=== PATIENT | male | born 1955 | race Two or more races ===

== ENCOUNTER 2018-08-25 16:42 | Outpatient (CLI) | payer OTHER | END 2018-08-25 23:59 | disposition home or self-care (01) | LOC: RAD 16:42 → EDSTATUS 17:00 → RAD 23:59 | PROVIDERS: ATTEND Physician Assistant Medical | DX: M47.816 Spondylosis without myelopathy or radiculopathy, lumbar region (principal); M48.061 Spinal stenosis, lumbar region without neurogenic claudication | CPT/HCPCS: 72148 ==

== ENCOUNTER 2019-04-06 09:33 | Outpatient (CLI) | payer OTHER ==
[2019-04-06 11:16] LABS: CULTURE INDICATED? NO; MICROSCOPIC NOT IND
[2019-04-06 11:24] LABS: BASOPHILS % (AUTO) 2 % (0-1); EOSINOPHILS # (AUTO) 0.31 x10^3/uL (0-0.4); EOSINOPHILS % (AUTO) 5 % (1-7); LYMPHOCYTES # (AUTO) 1.48 x10^3/uL (1-3.4); LYMPHOCYTES % (AUTO) 25 % (22-44); MD NO; MEAN CORPUSCULAR HEMOGLOBIN 29.5 pg (27.5-34.5); MEAN CORPUSCULAR HGB CONC 33.1 g/dL (33.2-36.2); MEAN CORPUSCULAR VOLUME 89.3 fL (81-97); MEAN PLATELET VOLUME 7.9 fL (7.4-10.4); MONOCYTES # (AUTO) 0.69 x10^3/uL (0.2-0.8); MONOCYTES % (AUTO) 12 % (2-9); NEUTROPHILS # (AUTO) 3.41 x10^3/uL (1.8-6.8); NEUTROPHILS % (AUTO) 57 % (42-75); PLATELET COUNT 277 x10^3/uL (130-400); RED CELL DISTRIBUTION WIDTH 15.6 % (9.4-14.8)
[2019-04-06 11:25] LABS: INTERNATIONAL NORMALIZED RATIO 1.01 (0.93-1.1); PROTHROMBIN TIME 10.7 Seconds (9.6-11.5)
[2019-04-06 11:27] LABS: ALBUMIN 4.1 g/dL (3.4-5.0); ANION GAP 11 mmol/L (5-15); CALCIUM 8.9 mg/dL (8.5-10.1); CHLORIDE 101 mmol/L (98-107)
[2019-04-06 11:30] LABS: ALANINE AMINOTRANSFERASE 34 U/L (12-78); ALKALINE PHOSPHATASE 65 U/L (45-117); BILIRUBIN,TOTAL 0.8 mg/dL (0.2-1.0); CREATININE 0.62 mg/dL (0.7-1.3); TOTAL PROTEIN 7.8 g/dL (6.4-8.2)
[2019-04-06] MEDS ORDERED: OXYC5CAP2 PO (15:13)
[2019-04-06] MEDS ORDERED: CINNAMON EXTRACT PO (15:13)
[2019-04-06] MEDS ORDERED: [UNRECOGNIZED DRUG - OTHER] PO (15:13)
[2019-04-06] MEDS ORDERED: PREG75CA PO (15:13)
[2019-04-06] MEDS ORDERED: IRBE150T25 PO (15:13)
[2019-04-06] MEDS ORDERED: CARV40CP5 PO (15:13)
[2019-04-06] MEDS ORDERED: FLAX1CAP PO (15:13)
[2019-04-06] MEDS ORDERED: OMEP20TA62 PO (15:13)
[2019-04-06] MEDS ORDERED: DOXY25TA18 PO (15:13)
[2019-04-06] MEDS ORDERED: Optifiber PO (15:13)
[2019-04-06] MEDS ORDERED: HYDR25TA6 PO (15:13)
[2019-04-06] MEDS ORDERED: [UNRECOGNIZED DRUG - OTHER] PO (15:13)
[2019-04-06] MEDS ORDERED: CHIA SEED PO (15:13)
[2019-04-06] MEDS ORDERED: OMEG1CAP23 PO (15:13)
[2019-04-06] MEDS ORDERED: ROSU5TAB PO (15:13)
[2019-04-06] MEDS ORDERED: PSYLLIUM HUSKS PO (15:13)
[2019-04-06] MEDS ORDERED: TEMA30CA PO (15:13)
[2019-04-06] MEDS ORDERED: ESCI20TA PO (15:13)
[2019-04-06] MEDS ORDERED: [UNRECOGNIZED DRUG - OTHER] PO (15:13)
== END 2019-04-06 23:59 | disposition home or self-care (01) ==
LOC: STAR 09:33
PROVIDERS: ATTEND Neurological Surgery
DX: Z01.818 Encounter for other preprocedural examination (principal); M51.36 Other intervertebral disc degeneration, lumbar region; M48.061 Spinal stenosis, lumbar region without neurogenic claudication; M43.16 Spondylolisthesis, lumbar region; R79.1 Abnormal coagulation profile; R94.31 Abnormal electrocardiogram [ECG] [EKG]; R82.90 Unspecified abnormal findings in urine
CPT/HCPCS: 36415; 71046; 72110; 80053; 81003; 85025; 85610; 85730; 93005

== ENCOUNTER 2019-04-17 11:21 | Inpatient (IN) | payer OTHER ==
[~2019-04-17] VITALS: Ht 177.8 cm; Wt 91.0 kg
[~2019-04-17 11:21] MED LIST: CARV40CP5 PO; CHIA SEED PO; CINNAMON EXTRACT PO; DOXY25TA18 PO; ESCI20TA PO; FLAX1CAP PO; HYDR25TA6 PO; IRBE150T9 PO; OMEG1CAP23 PO; OMEP20TA62 PO; OXYC5CAP2 PO; Optifiber PO; PREG75CA PO; PSYLLIUM HUSKS PO; ROSU5TAB PO; TEMA30CA PO; [UNRECOGNIZED DRUG - OTHER] PO; [UNRECOGNIZED DRUG - OTHER] PO; [UNRECOGNIZED DRUG - OTHER] PO
[2019-04-17] MEDS ORDERED: ACETAMINOPHEN 500 MG TABLET PO ONE (12:00)
[2019-04-17] MEDS ORDERED: LACTATED RINGERS 1,000 ML IV SCH (12:45)
[2019-04-17] MEDS ORDERED: EPINEPHRINE 1 MG/ML, 1ML ONE (13:46)
[2019-04-17] MEDS ORDERED: BUPIVACAINE/PF 0.5% ONE (13:46)
[2019-04-17] MEDS ORDERED: BACITRACIN 50,000 UNIT ONE (13:47)
[2019-04-17] MEDS ORDERED: FENTANYL PF 250 MCG/5ML ONE ×2 (13:52→16:23)
[2019-04-17] MEDS ORDERED: MIDAZOLAM 1 MG/ML, 2ML ONE (13:52)
[2019-04-17] MEDS ORDERED: PROPOFOL 150 ML ONE (13:58)
[2019-04-17] MEDS ORDERED: LIDOCAINE-MPF 2% ,5ML ONE ×2 (13:59)
[2019-04-17] MEDS ORDERED: ONDANSETRON 2MG/ML, 2ML IV PRN (14:30)
[2019-04-17] MEDS ORDERED: OXYcodone 5 MG/5 ML ORAL.SOL UDC PO PRN (14:30)
[2019-04-17] MEDS ORDERED: LABETALOL 5MG/ML, 20ML IV PRN (14:30)
[2019-04-17] MEDS ORDERED: FENTANYL PF 100 MCG/2ML IV PRN (14:30)
[2019-04-17] MEDS ORDERED: LORazepam 2 MG/ML, 1ML IVPush PRN (14:30)
[2019-04-17] MEDS ORDERED: hydrALAzine 20 MG/ML, 1ML IV PRN (14:30)
[2019-04-17] MEDS ORDERED: ONDANSETRON ODT 8 MG PO PRN (14:30)
[2019-04-17] MEDS ORDERED: PROMETHAZINE 25 MG SUPP PR PRN (14:30)
[2019-04-17] MEDS ORDERED: PROMETHAZINE 25 MG/ML, 1ML IV PRN (14:30)
[2019-04-17] MEDS ORDERED: DEXAMETHASONE 4 MG/ML, 1ML ONE (16:23)
[2019-04-17] MEDS ORDERED: SUCCINYLCHOLINE 20 MG/ML, 10ML ONE (16:23)
[2019-04-17] MEDS ORDERED: CEFAZOLIN 1,000 MG ONE (16:23)
[2019-04-17] MEDS ORDERED: ROCURONIUM 10MG/ML,5ML ONE (16:23)
[2019-04-17] MEDS ORDERED: NEOSTIGMINE 1 MG/ML, 10ML ONE (16:23)
[2019-04-17] MEDS ORDERED: ONDANSETRON 2MG/ML, 2ML ONE (16:23)
[2019-04-17] MEDS ORDERED: PROPOFOL 10 MG/ML, 20ML ONE (16:23)
[2019-04-17] MEDS ORDERED: GLYCOPYRROLATE 0.2MG/1ML, 5ML ONE (16:23)
[2019-04-17] MEDS ORDERED: PHARMACY MAY ADJ FOR RENAL FX MC PRN (18:00)
[2019-04-17] MEDS ORDERED: DIPHENHYDRAMINE 50 MG/ML, 1ML IVPush PRN (18:00)
[2019-04-17] MEDS ORDERED: MAGNESIUM HYDROXIDE 8%, 30ML UDC PO PRN (18:00)
[2019-04-17] MEDS ORDERED: ONDANSETRON 2MG/ML, 2ML IVPush PRN (18:00)
[2019-04-17] MEDS ORDERED: TEMPLATE NON-FORMULARY MED. (Escitalopram Oxalate** 20 MG) PO SCH (18:00)
[2019-04-17] MEDS ORDERED: PROMETHAZINE 25 MG/ML, 1ML IM PRN (18:00)
[2019-04-17] MEDS ORDERED: HYDROcodone/APAP 10/325 MG TABLET PO PRN (18:00)
[2019-04-17] MEDS ORDERED: HYDROmorphone 2 MG/ML, 1ML ONE (18:01)
[2019-04-17] MEDS ORDERED: OXYcodone 5 MG/5 ML ORAL.SOL UDC ONE (18:01)
[2019-04-17] MEDS ORDERED: FENTANYL PF 100 MCG/2ML ONE (18:01)
[2019-04-17] MEDS: HYDROmorphone 2 MG/ML, 1ML IVPush PRN ×3 (18:13→18:25)
[2019-04-17] MEDS ORDERED: METHOCARBAMOL 750 MG TABLET ONE (18:21)
[2019-04-17] MEDS: METHOCARBAMOL 750 MG TABLET PO PRN (18:23)
[2019-04-17] MEDS ORDERED: DIAZEPAM 5 MG/ML, 2ML ONE (18:40)
[2019-04-17] MEDS ORDERED: DIAZEPAM 5 MG/ML, 2ML IVPush PRN (19:00)
[2019-04-17 19:55] VITALS: BP 128/85
[2019-04-17] MEDS: PREGABALIN 75 MG CAPSULE PO SCH (20:45)
[2019-04-17] MEDS: D5%-0.9% NACL+KCL 20MEQ 1,000 ML IV SCH (20:45)
[2019-04-17] MEDS: ATORVASTATIN 20 MG TABLET PO SCH (20:45)
[2019-04-17] MEDS: TEMAZEPAM 30 MG CAPSULE PO SCH (20:46)
[2019-04-17] MEDS: CARVEDILOL 12.5 MG TABLET PO SCH (20:46)
[2019-04-17] MEDS: DOXYLAMINE 25MG TABLET PO SCH (20:46)
[2019-04-17] MEDS: morphine SULFATE 10 MG/ML, 1ML IVPush PRN (20:51)
[2019-04-17] MEDS: SODIUM CHLORIDE FLUSH 10ML SYR IVF SCH (21:00)
[2019-04-17] MEDS: HYDROcodone/APAP 5/325 TABLET PO PRN (22:40)
[2019-04-18] VITALS (17 sets, daily range): BP systolic 80–120; BP diastolic 49–81
[2019-04-18] MEDS: CEFAZOLIN PMX 1GM/50ML 50 ML IVPB SCH ×2 (00:04→09:02)
[2019-04-18 05:56] LABS: BASOPHILS % (AUTO) 0 % (0-1); EOSINOPHILS # (AUTO) 0.01 x10^3/uL (0-0.4); EOSINOPHILS % (AUTO) 0 % (1-7); LYMPHOCYTES # (AUTO) 0.64 x10^3/uL (1-3.4); LYMPHOCYTES % (AUTO) 7 % (22-44); MD NO; MEAN CORPUSCULAR HEMOGLOBIN 29.2 pg (27.5-34.5); MEAN CORPUSCULAR VOLUME 91.2 fL (81-97); MEAN PLATELET VOLUME 8.2 fL (7.4-10.4); MONOCYTES % (AUTO) 9 % (2-9); NEUTROPHILS # (AUTO) 8.05 x10^3/uL (1.8-6.8); NEUTROPHILS % (AUTO) 84 % (42-75); PLATELET COUNT 230 x10^3/uL (130-400); RED BLOOD COUNT 4.71 x10^6/uL (4.38-5.82); RED CELL DISTRIBUTION WIDTH 16.5 % (9.4-14.8)
[2019-04-18 06:02] LABS: ANION GAP 5 mmol/L (5-15); CALCIUM 8.4 mg/dL (8.5-10.1); CHLORIDE 106 mmol/L (98-107)
[2019-04-18 06:04] LABS: CREATININE 0.63 mg/dL (0.7-1.3)
[2019-04-18] MEDS: OMEPRAZOLE 20 MG CAPSULE.DR PO SCH (06:11)
[2019-04-18] MEDS: HYDROcodone/APAP 5/325 TABLET PO PRN ×2 (06:12→16:02)
[2019-04-18] MEDS: ENOXAPARIN 40 MG/0.4 ML SQ SCH (06:13)
[2019-04-18] MEDS: SODIUM CHLORIDE FLUSH 10ML SYR IVF SCH ×2 (09:03→21:00)
[2019-04-18] MEDS: CARVEDILOL 12.5 MG TABLET PO SCH ×2 (09:04→21:00)
[2019-04-18] MEDS: HYDROCHLOROTHIAZIDE 25 MG TABLET PO SCH (09:04)
[2019-04-18] MEDS: PREGABALIN 75 MG CAPSULE PO SCH ×2 (09:04→21:23)
[2019-04-18] MEDS: IRBESARTAN 150 MG TABLET PO SCH (09:04)
[2019-04-18] MEDS: METHOCARBAMOL 750 MG TABLET PO PRN (09:07)
[2019-04-18] MEDS: D5%-0.9% NACL+KCL 20MEQ 1,000 ML IV SCH ×2 (09:22→12:42)
[2019-04-18] MEDS ORDERED: SODIUM CHLORIDE 0.9%, 500ML IVBOLUS ONE ×2 (11:30→12:09)
--- NOTE | 2019-04-18 11:47 | NUR ---
JANET OLIVARES - Fall Risk Medication(s) present and receiving anticoagulants. Signed: 04/18/19 at 1148 by Dewey RIVERS
[2019-04-18 12:11] LABS: TROPONIN I < 0.015 ng/mL (0.000-0.045)
[2019-04-18] MEDS: morphine SULFATE 10 MG/ML, 1ML IVPush PRN ×2 (17:31→21:25)
[2019-04-18] MEDS: DOXYLAMINE 25MG TABLET PO SCH (21:23)
[2019-04-18] MEDS: TEMAZEPAM 30 MG CAPSULE PO SCH (21:23)
[2019-04-18] MEDS: ATORVASTATIN 20 MG TABLET PO SCH (21:23)
[2019-04-18] MEDS: OXYcodone/APAP 5/325MG TABLET PO PRN (21:24)
[2019-04-18] MEDS: SENNA/DOCUSATE TABLET PO PRN (22:40)
[2019-04-19 00:32] VITALS: BP 105/60
[2019-04-19] MEDS: D5%-0.9% NACL+KCL 20MEQ 1,000 ML IV SCH (01:49)
[2019-04-19] MEDS: OXYcodone/APAP 5/325MG TABLET PO PRN ×6 (01:49→21:42)
[2019-04-19 05:28] LABS: BASOPHILS # (AUTO) 0.04 x10^3/uL (0-0.1); BASOPHILS % (AUTO) 1 % (0-1); EOSINOPHILS # (AUTO) 0.08 x10^3/uL (0-0.4); EOSINOPHILS % (AUTO) 1 % (1-7); LYMPHOCYTES # (AUTO) 1.29 x10^3/uL (1-3.4); LYMPHOCYTES % (AUTO) 17 % (22-44); MD NO; MEAN CORPUSCULAR HEMOGLOBIN 29.3 pg (27.5-34.5); MEAN CORPUSCULAR VOLUME 91.5 fL (81-97); MEAN PLATELET VOLUME 8.1 fL (7.4-10.4); MONOCYTES # (AUTO) 0.98 x10^3/uL (0.2-0.8); MONOCYTES % (AUTO) 13 % (2-9); NEUTROPHILS # (AUTO) 5.04 x10^3/uL (1.8-6.8); NEUTROPHILS % (AUTO) 68 % (42-75); PLATELET COUNT 222 x10^3/uL (130-400); RED BLOOD COUNT 4.36 x10^6/uL (4.38-5.82); RED CELL DISTRIBUTION WIDTH 16.6 % (9.4-14.8)
[2019-04-19] MEDS: ENOXAPARIN 40 MG/0.4 ML SQ SCH (05:29)
[2019-04-19] MEDS: OMEPRAZOLE 20 MG CAPSULE.DR PO SCH (05:29)
[2019-04-19 05:30] LABS: ANION GAP 6 mmol/L (5-15); CALCIUM 8.3 mg/dL (8.5-10.1); CHLORIDE 106 mmol/L (98-107)
[2019-04-19 05:32] LABS: CREATININE 0.61 mg/dL (0.7-1.3)
[2019-04-19 07:09] VITALS: BP 102/65
[2019-04-19] MEDS ORDERED: SODIUM CHLORIDE 0.9%, 500ML IV ONE (08:30)
[2019-04-19] MEDS ORDERED: METHOCARBAMOL 750 MG TABLET PO PRN (08:30)
[2019-04-19] MEDS: PREGABALIN 75 MG CAPSULE PO SCH ×2 (09:11→21:42)
[2019-04-19] MEDS: IRBESARTAN 150 MG TABLET PO SCH (09:12)
[2019-04-19] MEDS: CARVEDILOL 12.5 MG TABLET PO SCH ×2 (09:12→21:41)
[2019-04-19] MEDS: HYDROCHLOROTHIAZIDE 25 MG TABLET PO SCH (09:12)
[2019-04-19] MEDS: SODIUM CHLORIDE FLUSH 10ML SYR IVF SCH ×2 (09:13→21:00)
[2019-04-19] MEDS: LACTATED RINGERS 1,000 ML IV SCH (09:14)
[2019-04-19 10:10] VITALS: BP 117/79
[2019-04-19] MEDS ORDERED: MORPHINE SULFATE 4 MG/ML, 1ML ONE ×2 (10:15→16:36)
[2019-04-19] MEDS: morphine SULFATE 10 MG/ML, 1ML IVPush PRN ×3 (10:17→22:25)
[2019-04-19 13:38] VITALS: BP 108/71
[2019-04-19 19:05] VITALS: BP 122/77
[2019-04-19] MEDS ORDERED: BISACODYL 10 MG SUPP PR PRN (19:30)
[2019-04-19] MEDS: TEMAZEPAM 30 MG CAPSULE PO SCH (21:41)
[2019-04-19] MEDS: DOXYLAMINE 25MG TABLET PO SCH (21:42)
[2019-04-19] MEDS: ATORVASTATIN 20 MG TABLET PO SCH (21:42)
[2019-04-20 01:00] VITALS: BP 112/76
[2019-04-20] MEDS: LACTATED RINGERS 1,000 ML IV SCH ×3 (01:40→12:30)
[2019-04-20] MEDS: OXYcodone/APAP 5/325MG TABLET PO PRN ×4 (01:56→22:20)
[2019-04-20 05:32] LABS: BASOPHILS # (AUTO) 0.05 x10^3/uL (0-0.1); BASOPHILS % (AUTO) 1 % (0-1); EOSINOPHILS % (AUTO) 3 % (1-7); LYMPHOCYTES # (AUTO) 1.14 x10^3/uL (1-3.4); LYMPHOCYTES % (AUTO) 17 % (22-44); MD NO; MEAN CORPUSCULAR HEMOGLOBIN 29.4 pg (27.5-34.5); MEAN CORPUSCULAR HGB CONC 32.4 g/dL (33.2-36.2); MEAN CORPUSCULAR VOLUME 90.7 fL (81-97); MEAN PLATELET VOLUME 8.1 fL (7.4-10.4); MONOCYTES # (AUTO) 0.88 x10^3/uL (0.2-0.8); MONOCYTES % (AUTO) 13 % (2-9); NEUTROPHILS # (AUTO) 4.33 x10^3/uL (1.8-6.8); NEUTROPHILS % (AUTO) 66 % (42-75); PLATELET COUNT 194 x10^3/uL (130-400); RED BLOOD COUNT 4.23 x10^6/uL (4.38-5.82); RED CELL DISTRIBUTION WIDTH 16.4 % (9.4-14.8)
[2019-04-20 05:37] LABS: INTERNATIONAL NORMALIZED RATIO 0.98 (0.93-1.1); PROTHROMBIN TIME 10.4 Seconds (9.6-11.5)
[2019-04-20 05:44] LABS: ANION GAP 6 mmol/L (5-15); CALCIUM 8.2 mg/dL (8.5-10.1); CHLORIDE 104 mmol/L (98-107)
[2019-04-20 05:45] LABS: CREATININE 0.61 mg/dL (0.7-1.3)
[2019-04-20] MEDS: OMEPRAZOLE 20 MG CAPSULE.DR PO SCH (06:07)
[2019-04-20] MEDS ORDERED: EPINEPHRINE 1 MG/ML, 1ML ONE (06:15)
[2019-04-20] MEDS ORDERED: BUPIVACAINE/PF 0.5% ONE (06:15)
[2019-04-20] MEDS ORDERED: VANCOMYCIN 1,000 MG ONE (06:15)
[2019-04-20] MEDS ORDERED: BUPIVACAINE 0.25% ONE (06:15)
[2019-04-20] MEDS ORDERED: BACITRACIN 50,000 UNIT ONE (06:15)
[2019-04-20 07:03] VITALS: BP 117/69
[2019-04-20] MEDS: PREGABALIN 75 MG CAPSULE PO SCH ×2 (08:08→21:26)
[2019-04-20] MEDS: IRBESARTAN 150 MG TABLET PO SCH (08:08)
[2019-04-20] MEDS: HYDROCHLOROTHIAZIDE 25 MG TABLET PO SCH (08:08)
[2019-04-20] MEDS: CARVEDILOL 12.5 MG TABLET PO SCH ×2 (08:13→21:25)
[2019-04-20] MEDS: SODIUM CHLORIDE FLUSH 10ML SYR IVF SCH ×3 (08:14→21:28)
[2019-04-20] MEDS ORDERED: FENTANYL PF 250 MCG/5ML ONE (08:50)
[2019-04-20] MEDS ORDERED: MIDAZOLAM 1 MG/ML, 2ML ONE (08:50)
[2019-04-20] MEDS ORDERED: PROPOFOL 50 ML ONE ×2 (09:20→11:34)
[2019-04-20] MEDS ORDERED: REMIFENTANIL 2 MG ONE (09:25)
[2019-04-20] MEDS ORDERED: BUPIVACAINE LIPOSOME/PF 10ML INFIL ONE (09:31)
[2019-04-20] MEDS ORDERED: DEXAMETHASONE 4 MG/ML, 1ML ONE (10:21)
[2019-04-20] MEDS ORDERED: ONDANSETRON 2MG/ML, 2ML ONE (10:21)
[2019-04-20] MEDS ORDERED: CEFAZOLIN 1,000 MG ONE (10:21)
[2019-04-20] MEDS ORDERED: ROCURONIUM 10MG/ML,5ML ONE (10:21)
[2019-04-20] MEDS ORDERED: PHENYLEPHRINE 10 MG/ML ONE (10:21)
[2019-04-20] MEDS ORDERED: hydrALAzine 20 MG/ML, 1ML IV PRN (10:30)
[2019-04-20] MEDS ORDERED: ACETAMINOPHEN 325 MG TABLET PO PRN (10:30)
[2019-04-20] MEDS ORDERED: HALOPERIDOL 5 MG/ML IV PRN (10:30)
[2019-04-20] MEDS ORDERED: OXYcodone 5 MG/5 ML ORAL.SOL UDC PO PRN (10:30)
[2019-04-20] MEDS ORDERED: METHOCARBAMOL 1,000 MG in DEXTROSE 5% 100 ML IV PRN (10:30)
[2019-04-20] MEDS ORDERED: MEPERIDINE/PF 25MG/ML,1ML IVPush PRN (10:30)
[2019-04-20] MEDS ORDERED: BUPIVACAINE/PF 0.5% INFIL ONE (11:01)
[2019-04-20] MEDS ORDERED: EPINEPHRINE 1 MG/ML, 1ML INFIL ONE (11:02)
[2019-04-20] MEDS ORDERED: BACITRACIN 50,000 UNIT IRRIG ONE (11:02)
[2019-04-20] MEDS ORDERED: BUPIVACAINE LIPOSOME/PF 20ML INFIL ONE (12:18)
[2019-04-20] MEDS ORDERED: VANCOMYCIN 1,000 MG IM ONE (12:18)
[2019-04-20] MEDS ORDERED: NEOSPORIN OINT, 15GM ONE (12:23)
[2019-04-20] MEDS ORDERED: OXYcodone 5 MG/5 ML ORAL.SOL UDC ONE (12:45)
[2019-04-20] MEDS ORDERED: FENTANYL PF 100 MCG/2ML ONE ×2 (12:45→13:13)
[2019-04-20] MEDS: FENTANYL PF 100 MCG/2ML IV PRN ×4 (12:47→13:27)
[2019-04-20] MEDS ORDERED: DIPHENHYDRAMINE 50 MG/ML, 1ML IVPush PRN (13:00)
[2019-04-20] MEDS ORDERED: MAGNESIUM HYDROXIDE 8%, 30ML UDC PO PRN (13:00)
[2019-04-20] MEDS ORDERED: SENNA/DOCUSATE TABLET PO PRN (13:00)
[2019-04-20] MEDS ORDERED: PROMETHAZINE 25 MG/ML, 1ML IM PRN (13:00)
[2019-04-20] MEDS ORDERED: HYDROcodone/APAP 10/325 MG TABLET PO PRN (13:00)
[2019-04-20] MEDS ORDERED: PHARMACY MAY ADJ FOR RENAL FX MC PRN (13:00)
[2019-04-20] MEDS ORDERED: HYDROmorphone 1 MG/ML, 1ML INJ ONE (13:30)
[2019-04-20] MEDS: HYDROmorphone 2 MG/ML, 1ML IVPush PRN ×2 (13:54→14:12)
[2019-04-20] MEDS ORDERED: KETOROLAC 30 MG/1 ML ONE (13:57)
[2019-04-20] MEDS ORDERED: KETOROLAC 30 MG/1 ML IVPush ONE (14:00)
[2019-04-20] MEDS: NS + 20MEQ KCL 1,000 ML IV SCH (15:24)
[2019-04-20] MEDS: CEFAZOLIN PMX 1GM/50ML 50 ML IVPB SCH (18:12)
[2019-04-20] MEDS: morphine SULFATE 10 MG/ML, 1ML IVPush PRN ×2 (18:44→21:25)
[2019-04-20 19:13] VITALS: BP 124/82
[2019-04-20] MEDS: ATORVASTATIN 20 MG TABLET PO SCH (21:26)
[2019-04-20] MEDS: TEMAZEPAM 30 MG CAPSULE PO SCH (21:26)
[2019-04-20] MEDS: DOXYLAMINE 25MG TABLET PO SCH (21:30)
[2019-04-21 00:29] VITALS: BP 116/80
[2019-04-21] MEDS: LACTATED RINGERS 1,000 ML IV SCH ×2 (01:00→12:11)
[2019-04-21] MEDS: CEFAZOLIN PMX 1GM/50ML 50 ML IVPB SCH (02:42)
[2019-04-21 04:52] VITALS: BP 136/88
[2019-04-21] MEDS: OXYcodone/APAP 5/325MG TABLET PO PRN ×5 (06:06→22:10)
[2019-04-21] MEDS: OMEPRAZOLE 20 MG CAPSULE.DR PO SCH (06:06)
[2019-04-21] MEDS: ENOXAPARIN 40 MG/0.4 ML SQ SCH (06:07)
[2019-04-21] MEDS: NS + 20MEQ KCL 1,000 ML IV SCH ×2 (06:07→18:01)
[2019-04-21 07:36] VITALS: BP 135/84
[2019-04-21] MEDS: morphine SULFATE 10 MG/ML, 1ML IVPush PRN ×3 (08:24→19:20)
[2019-04-21] MEDS: PREGABALIN 75 MG CAPSULE PO SCH ×2 (08:25→22:09)
[2019-04-21] MEDS: SODIUM CHLORIDE FLUSH 10ML SYR IVF SCH ×3 (08:25→22:09)
[2019-04-21] MEDS: CARVEDILOL 12.5 MG TABLET PO SCH ×2 (08:25→22:10)
[2019-04-21] MEDS: IRBESARTAN 150 MG TABLET PO SCH (08:25)
[2019-04-21] MEDS: HYDROCHLOROTHIAZIDE 25 MG TABLET PO SCH (08:25)
[2019-04-21] MEDS: SENNA/DOCUSATE TABLET PO PRN (10:12)
[2019-04-21] MEDS: KETOROLAC 30 MG/1 ML IV SCH ×2 (12:07→20:17)
[2019-04-21] MEDS: METHOCARBAMOL 750 MG in DEXTROSE 5% 100 ML IV SCH ×2 (12:07→18:02)
[2019-04-21 13:39] VITALS: BP 119/81
[2019-04-21] MEDS: ONDANSETRON 2MG/ML, 2ML IVPush PRN (19:20)
[2019-04-21 21:19] VITALS: BP 124/82
[2019-04-21] MEDS: TEMAZEPAM 30 MG CAPSULE PO SCH (22:09)
[2019-04-21] MEDS: ATORVASTATIN 20 MG TABLET PO SCH (22:10)
[2019-04-21] MEDS: DOXYLAMINE 25MG TABLET PO SCH (22:11)
[2019-04-22] MEDS: METHOCARBAMOL 750 MG in DEXTROSE 5% 100 ML IV SCH ×4 (00:10→18:26)
[2019-04-22 02:25] VITALS: BP 122/96
[2019-04-22] MEDS: OXYcodone/APAP 5/325MG TABLET PO PRN ×2 (03:51→08:46)
[2019-04-22] MEDS: ONDANSETRON 2MG/ML, 2ML IVPush PRN (03:51)
[2019-04-22] MEDS: KETOROLAC 30 MG/1 ML IV SCH (03:51)
[2019-04-22] MEDS: morphine SULFATE 10 MG/ML, 1ML IVPush PRN ×3 (04:53→19:37)
[2019-04-22] MEDS: ENOXAPARIN 40 MG/0.4 ML SQ SCH (06:46)
[2019-04-22] MEDS: OMEPRAZOLE 20 MG CAPSULE.DR PO SCH (06:46)
[2019-04-22] MEDS: NS + 20MEQ KCL 1,000 ML IV SCH ×3 (07:10→20:43)
[2019-04-22 07:50] VITALS: BP 114/76
[2019-04-22] MEDS: HYDROCHLOROTHIAZIDE 25 MG TABLET PO SCH (08:39)
[2019-04-22] MEDS: IRBESARTAN 150 MG TABLET PO SCH (08:39)
[2019-04-22] MEDS: PREGABALIN 75 MG CAPSULE PO SCH ×2 (08:46→20:51)
[2019-04-22] MEDS: BISACODYL 10 MG SUPP PR PRN (08:46)
[2019-04-22] MEDS: CARVEDILOL 12.5 MG TABLET PO SCH ×2 (08:46→20:50)
[2019-04-22] MEDS: SODIUM CHLORIDE FLUSH 10ML SYR IVF SCH ×2 (08:47→20:50)
[2019-04-22] MEDS ORDERED: KETOROLAC 30 MG/1 ML IV PRN (11:00)
[2019-04-22] MEDS: MAGNESIUM CITRATE 300ML ORAL SOL PO SCH ×2 (11:48→20:07)
[2019-04-22 13:25] VITALS: BP 108/73
[2019-04-22] MEDS: OXYcodone IR 5MG TABLET PO PRN ×3 (13:48→22:33)
[2019-04-22 19:44] VITALS: BP 121/82
[2019-04-22] MEDS: ATORVASTATIN 20 MG TABLET PO SCH (20:51)
[2019-04-22] MEDS: DOXYLAMINE 25MG TABLET PO SCH (20:51)
[2019-04-22] MEDS: TEMAZEPAM 30 MG CAPSULE PO SCH (20:52)
[2019-04-23] MEDS: METHOCARBAMOL 750 MG in DEXTROSE 5% 100 ML IV SCH ×4 (00:20→17:43)
[2019-04-23] MEDS: morphine SULFATE 10 MG/ML, 1ML IVPush PRN ×2 (01:52→23:26)
[2019-04-23 01:56] VITALS: BP 106/78
[2019-04-23] MEDS: OXYcodone IR 5MG TABLET PO PRN ×4 (03:21→19:57)
[2019-04-23] MEDS: NS + 20MEQ KCL 1,000 ML IV SCH ×4 (03:23→23:05)
[2019-04-23] MEDS: ENOXAPARIN 40 MG/0.4 ML SQ SCH (05:56)
[2019-04-23] MEDS: OMEPRAZOLE 20 MG CAPSULE.DR PO SCH (05:56)
[2019-04-23 06:59] VITALS: BP 113/76
[2019-04-23] MEDS: PREGABALIN 75 MG CAPSULE PO SCH ×2 (07:56→20:40)
[2019-04-23] MEDS: CARVEDILOL 12.5 MG TABLET PO SCH ×2 (07:56→20:41)
[2019-04-23] MEDS: IRBESARTAN 150 MG TABLET PO SCH (07:57)
[2019-04-23] MEDS: HYDROCHLOROTHIAZIDE 25 MG TABLET PO SCH (07:57)
[2019-04-23] MEDS: MAGNESIUM CITRATE 300ML ORAL SOL PO SCH ×2 (07:57→20:36)
[2019-04-23] MEDS: SODIUM CHLORIDE FLUSH 10ML SYR IVF SCH ×2 (07:57→20:40)
[2019-04-23] MEDS: FAMOTIDINE 20 MG TABLET PO SCH ×2 (08:47→20:40)
[2019-04-23] MEDS: DEXAMETHASONE 4 MG/ML, 1ML IVPush SCH ×3 (08:47→20:29)
[2019-04-23] MEDS: ONDANSETRON 2MG/ML, 2ML IVPush PRN (08:51)
[2019-04-23 12:26] VITALS: BP 107/72
[2019-04-23 20:11] VITALS: BP 130/79
[2019-04-23] MEDS: ATORVASTATIN 20 MG TABLET PO SCH (20:40)
[2019-04-23] MEDS: DOXYLAMINE 25MG TABLET PO SCH (20:40)
[2019-04-23] MEDS: TEMAZEPAM 30 MG CAPSULE PO SCH (20:41)
[2019-04-24] MEDS: METHOCARBAMOL 750 MG in DEXTROSE 5% 100 ML IV SCH ×2 (00:55→06:27)
[2019-04-24 02:15] VITALS: BP 116/80
[2019-04-24] MEDS: DEXAMETHASONE 4 MG/ML, 1ML IVPush SCH (02:37)
[2019-04-24] MEDS: NS + 20MEQ KCL 1,000 ML IV SCH ×3 (06:20→19:40)
[2019-04-24] MEDS: OXYcodone IR 5MG TABLET PO PRN ×3 (06:26→20:37)
[2019-04-24] MEDS: OMEPRAZOLE 20 MG CAPSULE.DR PO SCH (06:27)
[2019-04-24] MEDS: ENOXAPARIN 40 MG/0.4 ML SQ SCH (06:29)
[2019-04-24 07:34] VITALS: BP 121/84
[2019-04-24] MEDS ORDERED: morphine SULFATE 10 MG/ML, 1ML IVPush PRN (08:30)
[2019-04-24] MEDS: FAMOTIDINE 20 MG TABLET PO SCH ×2 (09:06→20:36)
[2019-04-24] MEDS: PREGABALIN 75 MG CAPSULE PO SCH ×4 (09:06→20:36)
[2019-04-24] MEDS: CARVEDILOL 12.5 MG TABLET PO SCH ×2 (09:07→20:36)
[2019-04-24] MEDS: HYDROCHLOROTHIAZIDE 25 MG TABLET PO SCH (09:07)
[2019-04-24] MEDS: IRBESARTAN 150 MG TABLET PO SCH (09:07)
[2019-04-24] MEDS: MAGNESIUM CITRATE 300ML ORAL SOL PO SCH ×2 (09:08→20:37)
[2019-04-24] MEDS: KETOROLAC 30 MG/1 ML IM PRN ×2 (09:12→16:41)
[2019-04-24] MEDS: SODIUM CHLORIDE FLUSH 10ML SYR IVF SCH ×2 (09:14→20:40)
[2019-04-24] MEDS: METHOCARBAMOL 750 MG TABLET PO SCH ×3 (11:12→20:36)
[2019-04-24 13:19] VITALS: BP 105/71
[2019-04-24 19:22] VITALS: BP 115/78
[2019-04-24] MEDS: ATORVASTATIN 20 MG TABLET PO SCH (20:35)
[2019-04-24] MEDS: BISACODYL 10 MG SUPP PR PRN ×2 (20:35→23:00)
[2019-04-24] MEDS: DOXYLAMINE 25MG TABLET PO SCH (20:36)
[2019-04-24] MEDS: TEMAZEPAM 30 MG CAPSULE PO SCH (20:36)
[2019-04-25] MEDS: KETOROLAC 30 MG/1 ML IM PRN (01:43)
[2019-04-25] MEDS: OXYcodone IR 5MG TABLET PO PRN ×4 (01:44→20:00)
[2019-04-25 02:08] VITALS: BP 112/74
[2019-04-25] MEDS: NS + 20MEQ KCL 1,000 ML IV SCH ×3 (02:20→15:45)
[2019-04-25] MEDS: METHOCARBAMOL 750 MG TABLET PO SCH ×4 (06:05→19:59)
[2019-04-25] MEDS: OMEPRAZOLE 20 MG CAPSULE.DR PO SCH (06:05)
[2019-04-25] MEDS: ENOXAPARIN 40 MG/0.4 ML SQ SCH (06:05)
[2019-04-25] MEDS: MAGNESIUM CITRATE 300ML ORAL SOL PO SCH ×2 (07:26→21:00)
[2019-04-25 07:28] VITALS: BP 108/76
[2019-04-25] MEDS ORDERED: KETOROLAC 30 MG/1 ML IV PRN (08:30)
[2019-04-25] MEDS: SODIUM CHLORIDE FLUSH 10ML SYR IVF SCH ×2 (09:05→21:00)
[2019-04-25] MEDS: PREGABALIN 75 MG CAPSULE PO SCH ×3 (09:06→21:07)
[2019-04-25] MEDS: FAMOTIDINE 20 MG TABLET PO SCH ×2 (09:06→19:59)
[2019-04-25] MEDS: HYDROCHLOROTHIAZIDE 25 MG TABLET PO SCH (09:06)
[2019-04-25] MEDS: IRBESARTAN 150 MG TABLET PO SCH (09:06)
[2019-04-25] MEDS: CARVEDILOL 12.5 MG TABLET PO SCH ×2 (09:06→20:00)
[2019-04-25 12:51] VITALS: BP 99/65
[2019-04-25] MEDS: SIMETHICONE 80 MG CHEW TAB PO PRN ×2 (16:59→21:07)
[2019-04-25] MEDS: LACTATED RINGERS 1,000 ML IV SCH ×2 (16:59→17:00)
[2019-04-25 19:30] VITALS: BP 107/73
[2019-04-25] MEDS: TEMAZEPAM 30 MG CAPSULE PO SCH (19:59)
[2019-04-25] MEDS: DOXYLAMINE 25MG TABLET PO SCH (19:59)
[2019-04-25] MEDS: ATORVASTATIN 20 MG TABLET PO SCH (20:00)
[2019-04-25] MEDS ORDERED: KETOROLAC 30 MG/1 ML IM PRN (20:30)
[2019-04-26 02:35] VITALS: BP 119/80
[2019-04-26] MEDS: OXYcodone IR 5MG TABLET PO PRN ×2 (02:42→10:18)
[2019-04-26] MEDS: SIMETHICONE 80 MG CHEW TAB PO PRN ×2 (02:42→08:57)
[2019-04-26] MEDS: METHOCARBAMOL 750 MG TABLET PO SCH ×2 (04:40→11:21)
[2019-04-26] MEDS: OMEPRAZOLE 20 MG CAPSULE.DR PO SCH (04:40)
[2019-04-26] MEDS: ENOXAPARIN 40 MG/0.4 ML SQ SCH (04:41)
[2019-04-26 07:42] VITALS: BP 116/72
[2019-04-26] MEDS: SODIUM CHLORIDE FLUSH 10ML SYR IVF SCH (08:08)
[2019-04-26] MEDS: MAGNESIUM CITRATE 300ML ORAL SOL PO SCH (08:08)
[2019-04-26] MEDS: PREGABALIN 75 MG CAPSULE PO SCH (08:54)
[2019-04-26] MEDS: HYDROCHLOROTHIAZIDE 25 MG TABLET PO SCH (08:54)
[2019-04-26] MEDS: CARVEDILOL 12.5 MG TABLET PO SCH (08:54)
[2019-04-26] MEDS: FAMOTIDINE 20 MG TABLET PO SCH (08:57)
[2019-04-26] MEDS: IRBESARTAN 150 MG TABLET PO SCH (08:57)
[2019-04-26] MEDS ORDERED: OXYC5TAB2 PO (09:02)
[2019-04-26] MEDS ORDERED: MORP-52 PO (09:02)
[2019-04-26 11:00] VITALS: BP 107/72
== END 2019-04-26 12:02 | DRG 454 ==
LOC: ORIP 11:21 → 4NE 19:54
PROVIDERS: ADMIT Neurological Surgery; ATTEND Neurological Surgery
PROC: 0SG1071 Fusion of 2 or more Lumbar Vertebral Joints with Autologous Tissue Substitute, Posterior Approach, Posterior Column, Open Approach (ICD-10-PCS; 2019-04-20)
PROC: 01NB0ZZ Release Lumbar Nerve, Open Approach (ICD-10-PCS; 2019-04-20)
PROC: 00NY0ZZ Release Lumbar Spinal Cord, Open Approach (ICD-10-PCS; 2019-04-20)
PROC: 4A11X4G Monitoring of Peripheral Nervous Electrical Activity, Intraoperative, External Approach (ICD-10-PCS; 2019-04-20)
PROC: 0SG10A0 Fusion of 2 or more Lumbar Vertebral Joints with Interbody Fusion Device, Anterior Approach, Anterior Column, Open Approach (ICD-10-PCS; principal; 2019-04-20 09:30)
DX: M48.061 Spinal stenosis, lumbar region without neurogenic claudication (principal); M48.56XA Collapsed vertebra, not elsewhere classified, lumbar region, initial encounter for fracture; I10 Essential (primary) hypertension; M43.16 Spondylolisthesis, lumbar region; M51.16 Intervertebral disc disorders with radiculopathy, lumbar region; M53.2X6 Spinal instabilities, lumbar region; Z82.61 Family history of arthritis; Z83.3 Family history of diabetes mellitus; Z88.8 Allergy status to other drugs, medicaments and biological substances
CPT/HCPCS: 36415; 72100; 74021; 76000; J3490; S0020; 72131; 80048; 82962; 84484; 85025; 85610; 86850; 86900; 93005; C1713; C9290; G0378; J0171; J0690; J1100; J1170; J1650; J1885; J2250; J2405; J2704; J2710; J3010; J3360; J3370; J3480; C1760; C1762; C1763; C1769; J0330; J1200; J2270; J2370; J2800; J7040; J7120

== ENCOUNTER 2019-08-15 07:17 | Outpatient (CLI) | payer MEDICAID ==
[~2019-08-15 07:17] MED LIST changes: +MORP-52 PO; +OXYC5TAB2 PO
== END 2019-08-15 23:59 | disposition home or self-care (01) ==
LOC: CFH 07:17
PROVIDERS: ATTEND Nurse Practitioner Family
DX: N62 Hypertrophy of breast (principal); Z90.49 Acquired absence of other specified parts of digestive tract
CPT/HCPCS: 76642; 76700; 77066